=== PATIENT | female | born 1985 ===

== ENCOUNTER 2019-05-21 13:25 | Inpatient (IN) | payer BC ==
[~2019-05-21 13:25] MED LIST: Bupivacaine 0.25% HCL 30 ML VIAL ONE; Bupivacaine HCl 0.5%/Epinephrine 1:200,000/PF 30 ml Vial ONE
[2019-05-21] MEDS ORDERED: Docusate 100 MG CAP PO PRN (21:27)
[2019-05-21] MEDS ORDERED: NS / Oxytocin 40 units/1000ml 1,000 ML IV PRN (21:27)
[2019-05-21] MEDS ORDERED: Promethazine HCl 25 MG/ML VIAL IM PRN (21:27)
[2019-05-21] MEDS ORDERED: Acetaminophen 500 MG TAB PO PRN (21:27)
[2019-05-21] MEDS ORDERED: Butorphanol Tartrate 1 MG/ML VIAL SLOW IVP PRN (21:27)
[2019-05-21] MEDS ORDERED: Ibuprofen 800 MG TAB PO PRN (21:27)
[2019-05-21] MEDS ORDERED: Lidocaine 1% (PF) 30 ML VIAL SC PRN (21:27)
[2019-05-21] MEDS ORDERED: NS w/ Oxytocin 10 units 500 ML IV SCH (21:27)
[2019-05-21] MEDS ORDERED: Ondansetron PF 4 MG/2 ML Vial IVP PRN (21:27)
[2019-05-21] MEDS ORDERED: Diphenoxylate HCl/Atropine Tablet PO PRN ×2 (21:27)
[2019-05-21] MEDS ORDERED: HYDROcodone/Acetaminophen 5/325 mg Tablet PO PRN ×2 (21:27)
[2019-05-21] MEDS ORDERED: Zolpidem Tartrate 5 MG TAB PO PRN (21:27)
[2019-05-21] MEDS ORDERED: Misoprostol 200 MCG TAB PR PRN (21:27)
[2019-05-21] MEDS ORDERED: hydrALAZINE 20 MG/ML VIAL SLOW IVP PRN (21:27)
[2019-05-21 22:10] VITALS: BMI 26.1
[2019-05-21 22:45] LABS: Hemoglobin 14.2 g/dL (12.0-16.0); Mean Corpuscular HGB CONC 34.5 g/dL (32.0-36.0); Mean Corpuscular Hemoglobin 34.2 pg (27.0-31.0); Mean Corpuscular Volume 99.2 fL (78.0-98.0); Mean Platelet Volume 9.6 fL (7.4-10.4); Platelet Count 178 thou/uL (130-400); Red Blood Cell (RBC) Count 4.16 mill/uL (4.20-5.40); White Blood Cell (WBC) Count 10.1 thou/uL (4.8-10.8)
[2019-05-21] MEDS: Lactated Ringer's 1,000 ML IV SCH (22:47)
[2019-05-21] MEDS: Misoprostol 100 MCG TAB VAG SCH (22:48)
[2019-05-21 23:29] LABS: Syphilis Antibody Nonreactive (Nonreactive); Syphilis Antibody Index 0.03 S/CO (<1.00 Non-Reactive)
[2019-05-22 01:12] LABS: HBSAg Index 0.16 S/CO (0-0.99); Hep B Surf Ag Non-Reactive S/CO (NonReactive)
[2019-05-22] MEDS: Misoprostol 100 MCG TAB VAG SCH (03:51)
[2019-05-22] MEDS: NS w/ Oxytocin 10 units 500 ML IV SCH (08:11)
[2019-05-22] MEDS ORDERED: Fentanyl 4 mcg/Bup 0.1% Cadd 100 ML ONE ×2 (10:13→16:59)
[2019-05-22] MEDS: Lactated Ringer's 1,000 ML IV SCH (10:20)
[2019-05-22] MEDS ORDERED: EPHEDRINE 25 MG/5 ML SYRINGE SLOW IVP PRN (10:47)
[2019-05-22] MEDS ORDERED: Lactated Ringer's 500 ML IV PRN (10:47)
[2019-05-22] MEDS ORDERED: diphenhydrAMINE 50 MG/ML VIAL IVP PRN ×2 (10:47→20:50)
[2019-05-22] MEDS ORDERED: Promethazine HCl 25 MG/ML VIAL IM PRN ×2 (10:47→20:50)
[2019-05-22] MEDS ORDERED: Acetaminophen 325 MG TAB PO PRN ×2 (10:47→21:26)
[2019-05-22] MEDS ORDERED: Naloxone HCl 0.4 mg/ml Vial IVP PRN ×4 (10:47→20:50)
[2019-05-22] MEDS ORDERED: Ondansetron PF 4 MG/2 ML Vial IVP PRN ×3 (10:47→21:26)
[2019-05-22] MEDS ORDERED: Communication Order-Pharmacy FS SCH ×2 (11:00→21:00)
[2019-05-22] MEDS ORDERED: Fentanyl 4 mcg/Bupivacaine 0.1% Cassette 100 ML EPIDURAL SCH (11:00)
[2019-05-22] MEDS ORDERED: Azithromycin 500 MG VIAL ONE (19:29)
[2019-05-22] MEDS ORDERED: Fentanyl 100 MCG/2 ML VIAL ONE (19:33)
[2019-05-22] MEDS ORDERED: PHENYLEPHRINE-NS 100 MCG/ML 10 ML SYRINGE ONE (20:02)
[2019-05-22] MEDS ORDERED: EPHEDRINE 25 MG/5 ML SYRINGE ONE (20:02)
[2019-05-22] MEDS ORDERED: Dexamethasone 4 mg/ml Vial ONE (20:02)
[2019-05-22] MEDS ORDERED: Ondansetron PF 4 MG/2 ML Vial ONE (20:02)
[2019-05-22] MEDS ORDERED: Oxytocin 10 UNITS/ML VIAL ONE ×3 (20:02→20:42)
[2019-05-22] MEDS ORDERED: Ketorolac Tromethamine 30 MG/ML VIAL ONE (20:02)
[2019-05-22] MEDS ORDERED: MORPHINE 5 MG/10 ML PF VIAL ONE (20:34)
[2019-05-22] MEDS ORDERED: Ondansetron HCl/PF 4 MG/2 ML Vial IVP PRN (20:50)
[2019-05-22] MEDS ORDERED: Naloxone HCl 0.4 mg/ml Vial IV PRN (20:50)
[2019-05-22] MEDS ORDERED: Ketorolac Tromethamine 30 MG/ML VIAL IVP PRN (20:50)
[2019-05-22] MEDS ORDERED: Meperidine HCl/PF 25 MG/ML VIAL SLOW IVP PRN (20:50)
[2019-05-22] MEDS ORDERED: HYDROmorphone 2 MG/ML VIAL SLOW IVP PRN (20:50)
[2019-05-22] MEDS ORDERED: L&D-Morphine 4 MG/ML VIAL SLOW IVP PRN (20:50)
[2019-05-22] MEDS ORDERED: Promethazine HCl 25 MG SUPP PR PRN (20:50)
[2019-05-22] MEDS ORDERED: Midazolam HCl 2 mg/2 ml Vial ONE (20:54)
[2019-05-22] MEDS ORDERED: Bisacodyl 10 MG SUPP PR PRN (21:26)
[2019-05-22] MEDS ORDERED: Lanolin Ointment 7 GM TUBE TOP PRN (21:26)
[2019-05-22] MEDS ORDERED: Misoprostol 200 MCG TAB PR PRN (21:26)
[2019-05-22] MEDS ORDERED: diphenhydrAMINE 25 MG CAP PO PRN (21:26)
[2019-05-22] MEDS ORDERED: hydrALAZINE 20 MG/ML VIAL SLOW IVP PRN (21:26)
[2019-05-22] MEDS ORDERED: Zolpidem Tartrate 5 MG TAB PO PRN (21:26)
[2019-05-22] MEDS ORDERED: NS / Oxytocin 40 units/1000ml 1,000 ML IV SCH (21:30)
[2019-05-23] MEDS ORDERED: Meperidine HCl/PF 25 MG/ML VIAL IM PRN (01:04)
[2019-05-23] MEDS ORDERED: HYDROcodone/Acetaminophen 5/325 mg Tablet PO PRN (01:04)
[2019-05-23] MEDS: Simethicone Chewable 80 MG TAB PO PRN ×2 (01:06→09:38)
[2019-05-23 05:19] LABS: Hemoglobin 12.8 g/dL (12.0-16.0); Mean Corpuscular HGB CONC 35.4 g/dL (32.0-36.0); Mean Corpuscular Hemoglobin 35.4 pg (27.0-31.0); Mean Platelet Volume 9.5 fL (7.4-10.4); Platelet Count 158 thou/uL (130-400); RBC Distribution Width 12.1 % (11.5-14.5); Red Blood Cell (RBC) Count 3.63 mill/uL (4.20-5.40); White Blood Cell (WBC) Count 19.6 thou/uL (4.8-10.8)
[2019-05-23] MEDS: Lactated Ringer's 1,000 ML IV SCH ×5 (07:13→20:39)
[2019-05-23] MEDS ORDERED: Adacel (T-DAP) 0.5 ML SYRINGE IM ONE (09:00)
[2019-05-23] MEDS: HYDROcodone/Acetaminophen 5/325 mg Tablet PO PRN ×3 (09:38→19:52)
[2019-05-23] MEDS: Docusate Calcium (SURFAK) 240 MG CAP PO SCH ×2 (09:38→19:52)
[2019-05-23] MEDS: Prenatal Vitamin 1 TAB PO SCH (09:38)
[2019-05-23] MEDS: Ferrous Sulfate 325 MG TAB PO SCH ×2 (18:07→19:17)
[2019-05-23] MEDS: Misoprostol 100 MCG TAB VAG SCH ×2 (19:18→19:19)
[2019-05-23] MEDS: NS w/ Oxytocin 10 units 500 ML IV SCH (19:20)
[2019-05-23] MEDS: Ibuprofen 800 MG TAB PO SCH (19:52)
--- NOTE | 2019-05-23 22:32 | OP ---
DATE OF PROCEDURE: 05/22/2019 RESIDENT SURGEON: Shanon Hooker DO PREOPERATIVE DIAGNOSES: 1. Term intrauterine at 39 and 1/7th weeks. 2. In-vitro fertilization . 3. Failure to progress. 4. Transverse arrest of descent and dilatation. POSTOPERATIVE DIAGNOSES: 1. Term intrauterine at 39 and 1/7th weeks. 2. In-vitro fertilization . 3. Failure to progress. 4. Transverse arrest of descent and dilatation. 5. Cephalopelvic disproportion. PROCEDURE: Primary low transverse section. ANESTHESIA: Epidural catheterization. FINDINGS: 1. Transverse arrest at 8 cm, complete effacement and 0 station. 2. Vigorous male infant, 8 pounds and 10 ounces, Apgars 9 and 9. 3. Cephalopelvic disproportion (prominent sacrum, android pelvis, and narrow outlet). 4. Normal uterus, tubes, and ovaries. COMPLICATIONS: None. SPECIMENS REMOVED: Cord and blood gas. BLOOD LOSS: Approximately 500 mL. QBL: 470 mL. DESCRIPTION OF PROCEDURE: After thorough consent and counseling, Ms. Fields was taken to the operating room and adequate level of anesthesia was obtained via existing epidural. The patient was prepped and draped in usual sterile fashion for abdominal surgery. A Nguyen had previously been placed in the bladder, was noted to be draining clear urine. A team time-out was performed. Attention was then turned to performing the primary low-transverse section. A Pfannenstiel incision was made and carried sharply to the fascia, which was also sharply incised. The midline was then identified and the rectus muscles were retracted laterally. The abdominoperitoneal cavity was entered with usual safeguards carried out. The bladder was noted to be noticeably higher once the peritoneal cavity was entered. A retractor was placed and a bladder flap was created on the vesicouterine peritoneum. A bladder blade was then placed. A low-transverse incision was made on the well-developed lower uterine segment. Upon entering the amniotic sac, a small amount of clear amniotic fluid was visualized. The was noted to be vertex presentation in the occiput transverse position still high in the pelvis. Head was delivered and baby was bulb suctioned on the abdomen. Shoulders and body were then delivered in an atraumatic fashion. The cord was doubly clamped and cut. The infant was handed to the pediatric team in attendance for the delivery. The infant was a vigorous viable male weighing 8 pounds and 10 ounces with Apgars of 9 and 9 obtained at 1 and 5 minutes respectively. Cord blood gases were obtained. The placenta was manually removed from the uterus. The uterus was exteriorized and good tone was noted. The uterine cavity was then cleared of any remaining clot and fluid. The low-transverse incision was closed with a running locking ligature of #1 chromic. A second imbricating layer was placed to facilitate strength and hemostasis. Several wqqmcx-[id number]-[id number] ligatures of #1 chromic were then placed to facilitate strength and hemostasis. The vesicouterine peritoneum was reapproximated to the lower segment with a running ligature of 2-0 Monocryl. The posterior cul-de-sac and gutters were cleared of clot and fluid. The pelvis was carefully inspected secondary to arrest in labor. The sacrum was noted to be extremely prominent. The transverse diameter was much wider than the AP diameter. The patient was also noted to have a narrow outlet during labor checks. The patient was given a diagnosis of cephalopelvic disproportion. The uterus was returned to the abdomen. The incision was inspected and noted to be hemostatic. Uterus, fallopian tubes, and ovaries were normal. Lap, sponge, and needle counts were correct. The peritoneum was then closed with a running ligature of 2-0 Vicryl suture. The rectus muscles were reapproximated in the midline with interrupted ligatures of 2-0 Vicryl and #1 chromic suture. The fascia was then closed with 2 ligatures of 0 Vicryl suture, which was tied in the midline. Good fascial integrity was appreciated. The incision was irrigated with copious amount of warm normal saline. The subcutaneous tissue was closed with interrupted ligatures of 2-0 plain. The skin was then closed with subcuticular stitch of 4-0 Monocryl and dressed with Dermabond. Lap, sponge, and needle counts were correct x3. Estimated blood loss in the surgical procedure was approximately 500 mL. QBL was pending. The patient was taken to recovery room in good condition. Immediately following surgery, the patient and family were made aware of the surgical procedure and operative findings. We discussed in detail the findings of cephalopelvic disproportion and the implications for future deliveries. The baby was returned to the mother shortly for [id number] contact and . The patient and her were very appreciative of the care rendered here at [facility]. Mother and baby doing well postoperatively. Job ID: [id number]
[2019-05-24] MEDS: Ibuprofen 800 MG TAB PO SCH ×2 (05:51→14:07)
[2019-05-24] MEDS: HYDROcodone/Acetaminophen 5/325 mg Tablet PO PRN ×2 (08:16→17:44)
[2019-05-24] MEDS: Ferrous Sulfate 325 MG TAB PO SCH (09:55)
[2019-05-24] MEDS: Prenatal Vitamin 1 TAB PO SCH (09:56)
[2019-05-24] MEDS: Docusate Calcium (SURFAK) 240 MG CAP PO SCH (09:56)
[2019-05-24] MEDS: Simethicone Chewable 80 MG TAB PO PRN (09:57)
[2019-05-24 12:20] VITALS: BP 130/68; TEMP 98.4
[2019-05-24] MEDS: Lactated Ringer's 1,000 ML IV SCH (14:04)
== END 2019-05-24 18:15 | disposition home or self-care (01) | DRG 788 ==
LOC: L&D 21:11 → 3SW 05-23 00:09
PROVIDERS: ADMIT Obstetrics & Gynecology; ATTEND Obstetrics & Gynecology
PROC: 10D00Z1 Extraction of Products of Conception, Low, Open Approach (ICD-10-PCS; principal; 2019-05-22)
DX: O33.9 Maternal care for disproportion, unspecified (principal); Z3A.39 39 weeks gestation of pregnancy; Z37.0 Single live birth; O64.0XX0 Obstructed labor due to incomplete rotation of fetal head, not applicable or unspecified
CPT/HCPCS: 36415; 36416; 51702; 85027; 86780; 86850; 86900; 86901; 87340; J0456; J0595; J0670; J0690; J1100; J1200; J1885; J2250; J2274; J2405; J2590; J3010; S0020